=== PATIENT | male | born 1945 | race Two or more races ===

== ENCOUNTER 2018-10-22 16:40 | Inpatient (IN) | payer MEDICARE, OTHER ==
--- NOTE | 2018-10-22 17:29 | ED Physician Chart ---
ED Chief Complaint/HPI - Patient Information Date Seen:: 10/22/18 Time Seen:: 17:24 Chief Complaint:: localized weakness History of Present Illness:: this is a 72 yo male hypertensive,diabetic, smoker who sudden developed weakness of the right lower extremity. the patient denies chest pain and head pain. he denies having a stroke and a heart attack. Allergies:: Allergies Allergy/AdvReac Type Severity Reaction Status Date / Time No Known Allergies Allergy Verified 10/22/18 17:02 Vitals:: Vital Signs - 8 hr 10/22/18 16:58 Temp 97.3 F HR 71 RR 16 BP 182/88 O2 Sat % 100 Historian:: Patient Review:: Nurse's Note Reviewed ED Review of Systems - Review of Systems General/Constitutional: No fever, No chills, No weight loss, Weakness (right lower extremity weakness), No diaphoresis, No edema, No loss of appetite Skin: No skin lesions, No rash, No bruising Head: No headache, No light-headedness Eyes: No loss of vision, No pain, No diplopia ENT: No earache, No nasal drainage, No sore throat, No tinnitus Neck: No neck pain, No swelling, No thyromegaly, No stiffness, No mass noted Cardio Vascular: No chest pain, No palpitations, No PND, No orthopnea, No edema Pulmonary: No SOB, No cough, No sputum, No wheezing GI: No nausea, No vomiting, No diarrhea, No pain, No melena, No hematochezia, No constipation, No hematemesis G/U: No dysuria, No frequency, No hematuria Musculoskeletal: No bone or joint pain, No back pain, No muscle pain Endocrine: No polyuria, No polydipsia Psychiatric: No prior psych history, No depression, No anxiety, No suicidal ideation Hematopoietic: No bruising, No lymphadenopathy Allergic/Immuno: No urticaria, No angioedema Neurological: No syncope, No focal symptoms, No weakness, No paresthesia, No headache, No seizure, No dizziness, No confusion, No vertigo ED Past Medical History - Past Medical History Obtainable: Yes Past Medical History: HTN, DM Family History: None Social History: Smoker, Alcohol, No Drug Use, Surgical History: None Psychiatricy History: None Medication: Reviewed Family Medical History - Family Member Mother History Unknown: Yes ED Physical Exam - Physical Examination General/Constitutional: Awake, Well-developed, well-nourished, Alert, No distress, GCS 15, Non-toxic appearing, Ambulatory Head: Atraumatic Eyes: Lids, conjuctiva normal, PERRL, EOMI Skin: Nl inspection, No rash, No skin lesions, No ecchymosis, Well hydrated, No lymphadenopathy ENMT: External ears, nose nl, Nasal exam nl, Lips, teeth, gums nl Neck: Nontender, Full ROM w/o pain, No JVD, No nuchal rigidity, No bruit, No mass, No stridor Respiratory: Nl effort/Exclusion, Clear to Auscultation, No Wheeze/Rhonchi/ Rales (right sided chest congestion with ronchi heard) Other Respiratory comments:: respiratory rate 30 to 40 Cardio Vascular: RRR, No murmur, gallop, rubs, NL S1 S2 (irregular irregular ) Other Cardio Vascular comments:: rapid rate in atrial fib bilateral distal pulses are absent bilateral femoral pulses decreased GI: No tenderness/rebounding/guarding, No organomegaly, No hernia, Normal BS's, Nondistended, No mass/bruits, No McBurney tenderness : No CVA tenderness Extremities: No tenderness or effusion, Full ROM, normal strength in all extremities (right lower extremity weakness), No edema, Normal digits & nails ( left 5th toe is missing and left index finger distal amputation) Neuro/Psych: Alert/oriented, DTR's symmetric, Normal sensory exam, Normal motor strength, Judgement/insight normal, Mood normal, Normal gait (patient cannot walk because there is pain and numbness.), No focal deficits Misc: Normal back (painful on range of motion), No paraspinal tenderness ED Labs/Radiology/EKG Results - Lab Results Results: Abnormal Lab Results 10/22/18 10/22/18 10/22/18 17:30 17:30 17:30 WBC 7.9 RBC 4.57 Hgb 15.2 Hct 44.5 MCV 97.3 MCH 33.2 H MCHC Differential 34.1 RDW 12.9 Plt Count 243 MPV 7.5 Neutrophils % 60.0 Lymphocytes % 32.1 Monocytes % 6.0 Eosinophils % 1.2 Basophils % 0.7 PT 11.0 INR 1.06 PTT (Actin FS) 24.3 L Sodium 135 L Potassium 4.1 Chloride 96 L Carbon Dioxide 17.8 L Anion Gap 25.3 H BUN 22 Creatinine 1.1 Est GFR ( Amer) > 60.0 Est GFR (Non-Af Amer) > 60.0 BUN/Creatinine Ratio 20.0 Glucose 319 H Calcium 9.7 Total Bilirubin 0.6 AST 24 ALT 30 Alkaline Phosphatase 87 Ammonia Troponin I Total Protein 7.9 Albumin 4.2 Globulin 3.7 Albumin/Globulin Ratio 1.1 TSH 10/22/18 10/22/18 10/22/18 17:30 17:30 17:30 WBC RBC Hgb Hct MCV MCH MCHC Differential RDW Plt Count MPV Neutrophils % Lymphocytes % Monocytes % Eosinophils % Basophils % PT INR PTT (Actin FS) Sodium Potassium Chloride Carbon Dioxide Anion Gap BUN Creatinine Est GFR ( Amer) Est GFR (Non-Af Amer) BUN/Creatinine Ratio Glucose Calcium Total Bilirubin AST ALT Alkaline Phosphatase Ammonia 50 Troponin I 0.03 Total Protein Albumin Globulin Albumin/Globulin Ratio TSH 1.40 - Radiology Results Results: chest x-ray = bilateral fibrotic disease with some edema - EKG Interpretations EKG Time:: 17:02 Rate & Rhythm: rate = 91, atrial fib Dexter: right axis ED Assessment - Assessment General Assessment: critically ill with severe copd and hypoxemia severe occlusive disease of the lower extremities atrial fib with rapid ventricular response. chf, Critical Care Time: 72 minutes Excludes all billable procedures: Yes This condition life threatening/high prob of deterioration: Yes ED Septic Shock - . Is Septic Shock (SBP<90, OR Lactate>4 mmol\L) present?: No - <6hrs of presentation: Vital Signs: Vital Signs - 8 hr 10/22/18 16:58 Temp 97.3 F HR 71 RR 16 BP 182/88 O2 Sat % 100 ED Reassessment (Disposition) - Reassessment Reassessment Condition:: Improved - Diagnosis Diagnosis:: respiratory failure bilateral lower extremity occlusive disease atrial fib with rapid ventricular response diabetes mellitus - Aftercare/Follow up Instructions Notes:: critical care for 72 minutes - Patient Disposition Discharge/Transfer:: Acute Care w/in this hosp Admitted to:: Telemetry Admitting Medical Physician:: Mikel Saini Condition at Disposition:: Critical, Improved
[2018-10-22 17:45] LABS: % BASOPHILS 0.7 % (0.0-2.0); % EOSINOPHILS 1.2 % (0.0-5.0); % LYMPHOCYTES 32.1 % (20.0-50.0); BASOPHILE ABSOLUTE 0.1 Th/cumm (0-0.2); EOSINOPHILE ABSOLUTE 0.1 Th/cmm (0.1-0.4); HEMATOCRIT 44.5 % (41.0-60); HEMOGLOBIN 15.2 gm/dL (12-16); LYMPHOCYTE ABSOLUTE 2.5 Th/cmm (1.5-3.0); MEAN CELL VOLUME 97.3 fl (80-99); MEAN CORPUSCULAR HEMOGLOBIN 33.2 pg (27.0-31.0); MEAN CORPUSCULAR HGB CONC 34.1 pg (28.0-36.0); MONOCYTE ABSOLUTE 0.5 Th/cmm (0.3-1.0); NEUTROPHILE ABSOLUTE 4.7 Th/cmm (1.8-8.0); PLATELET COUNT 243 Th/cmm (150-400); RED BLOOD COUNT 4.57 Mil/cmm (3.80-5.80); RED CELL DISTRIBUTION WIDTH 12.9 % (11.5-20.0); WHITE BLOOD COUNT 7.9 Th/cmm (4.8-10.8)
[2018-10-22 18:35] LABS: INR 1.06 (0.5-1.4)
[2018-10-22] MEDS ORDERED: Sodium Chloride 0.45% 500 ML IV ONE (18:37)
[2018-10-22 18:50] LABS: ALB/GLOB RATIO 1.1 (1.0-1.8); ALBUMIN 4.2 gm/dL (4.2-5.5); ALKALINE PHOSPHATASE 87 U/L (34-104); ANION GAP 25.3 (7.0-16.0); BILIRUBIN,TOTAL 0.6 mg/dL (0.3-1.0); BUN - UREA NITROGEN 22 mg/dL (7-25); CALCIUM SERUM 9.7 mg/dL (8.6-10.3); CARBON DIOXIDE 17.8 mEq/L (21.0-31.0); CHLORIDE 96 mEq/L (98-107); CREATININE - SERUM 1.1 mg/dL (0.7-1.3); GFR AFRICAN-AMERICAN > 60.0 ml/min (>90); GFR NON AFRICAN-AMERICAN > 60.0 ml/min; GLUCOSE 319 mg/dL (70-105); POTASSIUM SERUM 4.1 mEq/L (3.5-5.1); SGOT 24 U/L (13-39); SGPT/ALT 30 U/L (7-52); SODIUM SERUM 135 mEq/L (136-145); TOTAL PROTEIN,SERUM 7.9 gm/dL (6.0-8.3)
[2018-10-22] MEDS ORDERED: Diltiazem 5 mg/mL 5mL Vial IVP STA ×2 (19:01→19:27)
[2018-10-22] MEDS ORDERED: IOHEXOL 300mgI/mL 100 ML VIAL ONE (19:02)
[2018-10-22] MEDS ORDERED: Diltiazem 5 mg/mL 5mL Vial IVP ONE ×2 (19:04→19:06)
[2018-10-22] MEDS ORDERED: Albuterol/Ipratropium Neb 3 ML AERS HHN ONE (19:26)
[2018-10-22] MEDS ORDERED: Diltiazem 5 mg/mL 25mL Vial IV ONE (19:58)
[2018-10-22] MEDS ORDERED: Dextrose 50% 50 mL Abboject IVP PRN (21:14)
[2018-10-22] MEDS ORDERED: GLUCAGON HCl 1 MG KIT IM PRN (21:14)
[2018-10-22 21:25] LABS: PaCO2 25.9 mmHg (35.0-45.0); PaO2 73.7 mmHg (80.0-100.0); pH 7.296 (7.35-7.45)
[2018-10-22] MEDS: Levofloxacin 500mg/100mL 500 MG/100 ML BAG IV SCH (23:00)
[2018-10-23] MEDS ORDERED: Sodium Chloride 0.45% 1,000 ML IV SCH (00:15)
[2018-10-23] MEDS: INSULIN LISPRO SLIDING SCALE 100 UNITS/ML UNIT SUBQ SCH ×5 (00:25→23:28)
[2018-10-23] MEDS: methylPREDNISolone SS 40 mg Vial IVP SCH ×4 (03:03→21:27)
[2018-10-23 05:48] VITALS: BP 117/75
[2018-10-23 05:55] LABS: % BASOPHILS 0.2 % (0.0-2.0); % EOSINOPHILS 0.4 % (0.0-5.0); % LYMPHOCYTES 12.6 % (20.0-50.0); % MONOCYTES 4.3 % (2.0-10.0); % NEUTROPHILS 82.5 % (40.0-80.0); HEMATOCRIT 43.2 % (41.0-60); HEMOGLOBIN 14.5 gm/dL (12-16); MEAN CELL VOLUME 97.5 fl (80-99); MEAN CORPUSCULAR HEMOGLOBIN 32.7 pg (27.0-31.0); MEAN CORPUSCULAR HGB CONC 33.5 pg (28.0-36.0); MONOCYTE ABSOLUTE 0.3 Th/cmm (0.3-1.0); NEUTROPHILE ABSOLUTE 6.8 Th/cmm (1.8-8.0); PLATELET COUNT 210 Th/cmm (150-400); RED BLOOD COUNT 4.43 Mil/cmm (3.80-5.80); RED CELL DISTRIBUTION WIDTH 12.9 % (11.5-20.0); WHITE BLOOD COUNT 8.1 Th/cmm (4.8-10.8)
[2018-10-23 06:19] LABS: ALB/GLOB RATIO 1.1 (1.0-1.8); ALKALINE PHOSPHATASE 85 U/L (34-104); ANION GAP 19.3 (7.0-16.0); BILIRUBIN,TOTAL 0.5 mg/dL (0.3-1.0); BUN - UREA NITROGEN 27 mg/dL (7-25); CALCIUM SERUM 9.4 mg/dL (8.6-10.3); CARBON DIOXIDE 17.4 mEq/L (21.0-31.0); CHLORIDE 96 mEq/L (98-107); CHOLESTEROL 127 mg/dL (<200); CREATININE - SERUM 0.9 mg/dL (0.7-1.3); GFR AFRICAN-AMERICAN > 60.0 ml/min (>90); GFR NON AFRICAN-AMERICAN > 60.0 ml/min; GLUCOSE 286 mg/dL (70-105); HDL -HIGH DENSITY LIPOPROTEIN 31 mg/dL (23-92); POTASSIUM SERUM 4.7 mEq/L (3.5-5.1); SGOT 48 U/L (13-39); SGPT/ALT 32 U/L (7-52); SODIUM SERUM 128 mEq/L (136-145); TOTAL PROTEIN,SERUM 7.5 gm/dL (6.0-8.3); TRIGLYCERIDES 107 mg/dL (<150)
[2018-10-23 08:07] LABS: A1C 7.2 % (4.8-5.6)
[2018-10-23] MEDS: Sodium Chloride 0.9% 1,000 ML IV SCH ×2 (09:07→18:20)
--- NOTE | 2018-10-23 09:45 | Diagnostic Imaging Report ---
Bilateral lower extremity DVT study HISTORY: Leg pain COMPARISON: None Technique: Longitudinal and transverse sonographic images of the bilateral lower extremity veins were obtained with doppler analysis. FINDINGS: Exam is limited due to body habitus. There is normal compressibility, augmentation and phasicity of the bilateral common femoral, superficial femoral, and popliteal veins. The bilateral posterior tibial veins were not able to be visualized due to body habitus. IMPRESSION: Limited exam due to body habitus. The bilateral posterior tibial veins are not able to be visualized due to body habitus. Otherwise no evidence of DVT within the bilateral lower extremity venous system.
--- NOTE | 2018-10-23 09:50 | Diagnostic Imaging Report ---
Head CT without intravenous contrast Indication: Weakness Comparison: None Technique: Axial images were obtained from the vertex to the skull base without IV contrast. Coronal reconstructions were made. Total DLP: 619, CTDI 34 FINDINGS: Images of the brain obtained without contrast demonstrate evidence of previous right temporal and occipital infarct with associated encephalomalacia. Atrophy is noted. There is no evidence of acute hemorrhage. The ventricles and basal cisterns are patent. No mass effect or midline shift. No evidence of a skull fracture or focal soft tissue swelling. There is diffuse atherosclerosis. Postsurgical changes of the right maxillary sinus is noted with air-fluid level also noted. Previous nasal fractures are seen age-indeterminate. IMPRESSION: No evidence of an acute intracranial hemorrhage. 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 Age-indeterminate, probably chronic nasal fractures. Please correlate clinically. Atrophy. Right maxillary sinusitis with air-fluid level. There is evidence of previous surgery in this region. Please correlate clinically. Diffuse atherosclerosis.
--- NOTE | 2018-10-23 09:53 | Diagnostic Imaging Report ---
CHEST X-RAY: AP view INDICATION: Weakness COMPARISON: None FINDINGS: There is diffuse increased increased lung markings. No focal consolidation or effusions. Heart size is normal. Atherosclerosis is noted. Old sixth through eighth left rib fractures are noted. No evidence of pneumothorax. IMPRESSION: Marked increased interstitial lung markings which represent chronic lung changes. A marginal degree of congestion is less likely cannot be completely excluded. Please correlate clinically. No focal consolidation identified Atherosclerotic vascular disease.
--- NOTE | 2018-10-23 09:55 | Diagnostic Imaging Report ---
Ultrasound abdomen HISTORY: Abdominal pain COMPARISON: None Technique: Sonography of the abdomen was performed in multiple planes. FINDINGS: Exam is severely limited due to body habitus and bowel gas. There is poor visualization of the liver limiting assessment for focal lesions. The liver measures 15 cm. Assessment of the gallbladder was limited. No gross gallstones identified. The common bile duct and pancreas are not visualized due to bowel gas. Limited assessment of the kidneys demonstrates no hydronephrosis. The spleen measures 10.6 cm. IMPRESSION: Markedly limited exam due to bowel gas and body habitus. No evidence of hydronephrosis.
--- NOTE | 2018-10-23 09:56 | Diagnostic Imaging Report ---
Right lower extremity arterial Doppler study HISTORY: Pain COMPARISON: None Technique: Longitudinal and transverse sonographic images of the right lower extremity arteries were obtained with doppler analysis. FINDINGS: There is severe atherosclerotic vascular disease without significant flow identified. ABIs are not able to be obtained due to pain. IMPRESSION: Severe right lower extending atherosclerotic vascular disease limiting assessment for significant flow. Please correlate clinically. CT or conventional angiography may be obtained for further assessment.
--- NOTE | 2018-10-23 10:20 | Diagnostic Imaging Report ---
CT lumbar spine without IV contrast HISTORY: Trauma COMPARISON: None Technique: Axial images were obtained from the lower thoracic spine to the upper sacrum without IV contrast. Reconstructions were made. total DLP: 1200, CTDI 39 Findings: Images of the lumbar spine obtained without contrast demonstrate possible previous left L1 transverse process fracture which may be chronic. Otherwise no evidence of acute fracture or subluxation. Advanced degenerative changes are seen including diffuse facet hypertrophic changes. Multilevel large marginal osteophytic spurs are noted primarily anteriorly and laterally. Osteopenia is seen with appears to be residual trabecular bone within the vertebral bodies most apparent at L1. There is diffuse atherosclerotic vascular disease. Severe chronic changes of the lung bases noted. IMPRESSION: Possible previous nondisplaced left L1 transverse process fracture which may be chronic. Please correlate clinically. Advanced degenerative changes Osteopenia Diffuse atherosclerotic vascular disease Severe increased interstitial lung markings are noted probably due to chronic changes.
[2018-10-23] MEDS ORDERED: Heparin Sod 5,000Units/ML 5,000 UNITS/ML VIAL SUBQ ONE (14:00)
[2018-10-23] MEDS ORDERED: Heparin 25,000 Units In D5W 25,000 UNITS/250 ML BAG IV SCH (15:00)
[2018-10-23] MEDS: Heparin 25,000 Units In D5W 25,000 UNITS/250 ML BAG IV PRN (15:28)
--- NOTE | 2018-10-23 15:40 | History and Physical ---
History of Present Illness - HPI Chief Complaint: Lower extremity weakness HPI: 72M was walking when he developed sudden lower extremity weakness, more on RLE. Hx HTN, DM, smoker. Vital Signs: Last Vital Signs Temp 97.6 F 10/23/18 12:00 Pulse 93 10/23/18 13:00 Resp 20 10/23/18 13:58 BP 134/90 10/23/18 13:00 Pulse Ox 96 10/23/18 13:00 Past Medical History Cardiovascular: Report: HTN Pulmonary: Report: Other (smoker) GI: Report: No Pertinent Hx Psych: Report: No Pertinent Hx Musculoskeletal: Report: No Pertinent Hx Endocrine: Report: Diabetes - Past Surgical History Past Surgical History: Other (L middle toe amputation) Family Medical History - Family Member Mother History Unknown: Yes Social History Smoke: # pack years (Active smoker) Alcohol: Occassional (Beer), Other Drugs: None Lives: Other - Medications Home Medications: Home Medication Medication Instructions Recorded Type Benazepril [Lotensin] 20 mg PO DAILY 10/22/18 History Metformin HCl 500 mg PO BID 10/22/18 History - Allergies Allergies/Adverse Reactions: Allergies Allergy/AdvReac Type Severity Reaction Status Date / Time No Known Allergies Allergy Verified 10/22/18 17:02 Review of Systems - Review of Systems Constitutional: Report: Weakness Eyes: Report: No Significant Respiratory: Report: No Significant Cardiovascular: Report: No Significant Neurological: Report: No Significant Physical Exam - Physical Exam HEENT: Report: Ears Nose Throat within normal limits Neck: Report: Within normal limits Cardiovascular Systems: Report: no murmurs noted, Irregular rhythm was noted Respiratory: Report: Clear to Auscultation of lung bautista Abdomen: Report: Non-tender to palpation Extremities: Report: Other (L middle toe amputated) Neuro/Psych: Report: Mood affect is within normal limits, A+Ox3 - Lab Results All Lab Results last 24 hours: Laboratory Results - last 24 hr 10/22/18 10/22/18 10/22/18 17:30 17:30 17:30 WBC 7.9 RBC 4.57 Hgb 15.2 Hct 44.5 MCV 97.3 MCH 33.2 H MCHC Differential 34.1 RDW 12.9 Plt Count 243 MPV 7.5 Neutrophils % 60.0 Lymphocytes % 32.1 Monocytes % 6.0 Eosinophils % 1.2 Basophils % 0.7 PT 11.0 INR 1.06 PTT (Actin FS) 24.3 L Specimen Source Sample Site pH pCO2 pO2 HCO3 Base Excess O2 Saturation Lenin Test Vent Rate Inspired O2 Tidal Volume PEEP Pressure (ins/psv/peep) Critical Value Sodium 135 L Potassium 4.1 Chloride 96 L Carbon Dioxide 17.8 L Anion Gap 25.3 H BUN 22 Creatinine 1.1 Est GFR ( Amer) > 60.0 Est GFR (Non-Af Amer) > 60.0 BUN/Creatinine Ratio 20.0 Glucose 319 H POC Glucose Calcium 9.7 Total Bilirubin 0.6 AST 24 ALT 30 Alkaline Phosphatase 87 Ammonia Troponin I Total Protein 7.9 Albumin 4.2 Globulin 3.7 Albumin/Globulin Ratio 1.1 Triglycerides Cholesterol LDL Cholesterol Direct HDL Cholesterol TSH 10/22/18 10/22/18 10/22/18 17:30 17:30 17:30 WBC RBC Hgb Hct MCV MCH MCHC Differential RDW Plt Count MPV Neutrophils % Lymphocytes % Monocytes % Eosinophils % Basophils % PT INR PTT (Actin FS) Specimen Source Sample Site pH pCO2 pO2 HCO3 Base Excess O2 Saturation Lenin Test Vent Rate Inspired O2 Tidal Volume PEEP Pressure (ins/psv/peep) Critical Value Sodium Potassium Chloride Carbon Dioxide Anion Gap BUN Creatinine Est GFR ( Amer) Est GFR (Non-Af Amer) BUN/Creatinine Ratio Glucose POC Glucose Calcium Total Bilirubin AST ALT Alkaline Phosphatase Ammonia 50 Troponin I 0.03 Total Protein Albumin Globulin Albumin/Globulin Ratio Triglycerides Cholesterol LDL Cholesterol Direct HDL Cholesterol TSH 1.40 10/22/18 10/23/18 10/23/18 19:09 00:25 03:00 WBC RBC Hgb Hct MCV MCH MCHC Differential RDW Plt Count MPV Neutrophils % Lymphocytes % Monocytes % Eosinophils % Basophils % PT INR PTT (Actin FS) Specimen Source Arterial Sample Site Left Radial pH 7.296 L pCO2 25.9 L pO2 73.7 L HCO3 12.3 L Base Excess -12.2 L O2 Saturation 94.0 Lenin Test Positive Vent Rate NA Inspired O2 100 Tidal Volume NA PEEP NA Pressure (ins/psv/peep) NA Critical Value LQ Sodium Potassium Chloride Carbon Dioxide Anion Gap BUN Creatinine Est GFR ( Amer) Est GFR (Non-Af Amer) BUN/Creatinine Ratio Glucose POC Glucose 458 H* 315 H Calcium Total Bilirubin AST ALT Alkaline Phosphatase Ammonia Troponin I Total Protein Albumin Globulin Albumin/Globulin Ratio Triglycerides Cholesterol LDL Cholesterol Direct HDL Cholesterol TSH 06/09/19 06/09/19 06/09/19 04:45 05:00 05:00 WBC RBC Hgb Hct MCV MCH MCHC Differential RDW Plt Count MPV Neutrophils % Lymphocytes % Monocytes % Eosinophils % Basophils % PT INR PTT (Actin FS) Specimen Source Sample Site pH pCO2 pO2 HCO3 Base Excess O2 Saturation Lenin Test Vent Rate Inspired O2 Tidal Volume PEEP Pressure (ins/psv/peep) Critical Value Sodium 128 L Potassium 4.7 Chloride 96 L Carbon Dioxide 17.4 L Anion Gap 19.3 H BUN 27 H Creatinine 0.9 Est GFR ( Amer) > 60.0 Est GFR (Non-Af Amer) > 60.0 BUN/Creatinine Ratio 30.0 Glucose 286 H POC Glucose Calcium 9.4 Total Bilirubin 0.5 AST 48 H ALT 32 Alkaline Phosphatase 85 Ammonia Troponin I 3.06 H* D Total Protein 7.5 Albumin 4.0 L Globulin 3.5 Albumin/Globulin Ratio 1.1 Triglycerides 107 Cholesterol 127 LDL Cholesterol Direct 81 HDL Cholesterol 31 TSH 1.25 10/23/18 10/23/18 10/23/18 05:00 05:04 11:26 WBC 8.1 RBC 4.43 Hgb 14.5 Hct 43.2 MCV 97.5 MCH 32.7 H MCHC Differential 33.5 RDW 12.9 Plt Count 210 MPV 7.5 Neutrophils % 82.5 H Lymphocytes % 12.6 L Monocytes % 4.3 Eosinophils % 0.4 Basophils % 0.2 PT INR PTT (Actin FS) Specimen Source Sample Site pH pCO2 pO2 HCO3 Base Excess O2 Saturation Lenin Test Vent Rate Inspired O2 Tidal Volume PEEP Pressure (ins/psv/peep) Critical Value Sodium Potassium Chloride Carbon Dioxide Anion Gap BUN Creatinine Est GFR ( Amer) Est GFR (Non-Af Amer) BUN/Creatinine Ratio Glucose POC Glucose 281 H 246 H Calcium Total Bilirubin AST ALT Alkaline Phosphatase Ammonia Troponin I Total Protein Albumin Globulin Albumin/Globulin Ratio Triglycerides Cholesterol LDL Cholesterol Direct HDL Cholesterol TSH 10/23/18 10/23/18 14:02 14:22 WBC RBC Hgb Hct MCV MCH MCHC Differential RDW Plt Count MPV Neutrophils % Lymphocytes % Monocytes % Eosinophils % Basophils % PT INR PTT (Actin FS) 29.6 Specimen Source Sample Site pH pCO2 pO2 HCO3 Base Excess O2 Saturation Lenin Test Vent Rate Inspired O2 Tidal Volume PEEP Pressure (ins/psv/peep) Critical Value Sodium Potassium Chloride Carbon Dioxide Anion Gap BUN Creatinine Est GFR ( Amer) Est GFR (Non-Af Amer) BUN/Creatinine Ratio Glucose POC Glucose Calcium Total Bilirubin AST ALT Alkaline Phosphatase Ammonia Troponin I 2.84 H* Total Protein Albumin Globulin Albumin/Globulin Ratio Triglycerides Cholesterol LDL Cholesterol Direct HDL Cholesterol TSH - Assessment Assessment: LE weakness R>L HTN DM Afib Elevated Troponin Hyponatremia - Plan Plan: Continue to monitor labs Continue to monitor Vs Strict I/O F/U ECHO - being performed at bedside F/U Pulm and Cards recs F/U troponin Continue current treatments. Continue collaboration with consulting specialist, nursing team and interdisciplinary team. Fall Precaution.
[2018-10-23] MEDS: Albuterol/Ipratropium Neb 3 ML AERS HHN SCH (18:42)
--- NOTE | 2018-10-23 18:49 | Cardiology ---
10/23/2018 ECHOCARDIOGRAM REPORT. PATIENT OF: Dr. Saini. M-MODE ECHOCARDIOGRAM: Mitral valve, anterior leaflet of mitral valve shows decreased excursion, EF velocity. Posterior leaflet of the mitral valve shows decreased excursion. Left ventricular posterior wall shows increased thickness, decreased excursion. Interventricular septum shows increased thickness, decreased excursion, ejection fraction 43%. Left atrium normal. Aortic root shows normal dimension, normal excursion of aortic leaflets. CONCLUSION: Hypertrophy of the left ventricle, ejection fraction 43%. 2D ECHO: Long axis view shows enlarged left ventricular cavity with decreased ejection fraction, hypertrophy of the left ventricle. Left atrium normal. Aortic root shows normal dimension, normal excursion of aortic leaflets. Short axis view of mitral valve normal. Short axis view of aortic valve normal. Apical 4-chamber view shows enlarged left ventricular cavity with decreased ejection fraction. Left atrium enlarged. Right ventricular cavity, right atrium normal, no pericardial effusion. CONCLUSION: Cardiomyopathy, ejection fraction 43%, hypertrophy of the left ventricle. Doppler study shows moderate mitral regurgitation, moderate tricuspid regurgitation, right ventricular systolic pressure 65 mmHg with severe pulmonary hypertension. JOB# [id number]
[2018-10-23] MEDS: Levofloxacin 500mg/100mL 500 MG/100 ML BAG IV SCH (23:00)
[2018-10-24] MEDS: Albuterol/Ipratropium Neb 3 ML AERS HHN SCH ×4 (00:23→18:43)
--- NOTE | 2018-10-24 03:10 | Consultation ---
DATE OF CONSULTATION: 10/23/[address] Saini. HISTORY OF PRESENT ILLNESS: This is a 72-year-old male patient who was walking in the mal at which time he suddenly became weak and the legs could not hold him at this time, he collapsed, but did not have syncope, and the patient was brought to the Emergency Room. The patient is admitted. The patient has atrial fibrillation with poor pulses in both lower extremities and unable to move both the lower extremities. The patient had a CT scan of the back, which showed L1 fracture, probably old. CT scan of the brain shows old CVA in the right temporal occipital lobe. FAMILY HISTORY: Unremarkable. SOCIAL HISTORY: The patient is a smoker. ALLERGIES: None. PHYSICAL EXAMINATION: VITAL SIGNS: Blood pressure 120/80, pulse 90 irregular, and respirations 28. HEAD: Normocephalic. No lumps or bumps. EYES: Pupils equal, reactive to light. Fundi show AV nicking, sclerae white, conjunctivae pink. NECK: Carotid 2+. Normal upstroke. JVD flat. Thyroid not palpable. Lymph nodes not palpable. CHEST: Shows increased AP diameter. No kyphosis, scoliosis. LUNGS: Bilateral bronchovesicular breath sounds. HEART: PMI fifth intercostal space with lateral to midclavicular line. S1 irregular. S2, S3, S4. Systolic murmur, grade 2/6, lower left sternal border, radiating to left axilla. ABDOMEN: Soft. Liver, spleen not palpable. No organomegaly. Bowel sounds active. NEUROLOGIC: The patient is unable to move both lower extremities: The patient had echocardiogram which showed ejection fraction 43%, left ventricular hypertrophy with moderate mitral regurgitation, moderate tricuspid regurgitation, severe pulmonary hypertension with right ventricular systolic pressure 65 mmHg. DIAGNOSES: 1. Atrial fibrillation. 2. Hypertension. 3. Peripheral vascular disease of both lower extremities. 4. 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 5. Diabetes mellitus type 2. 6. Diabetic peripheral vascular disease. 7. Nicotine dependence. 8. Chronic obstructive pulmonary disease. 9. Hyponatremia. 10. Non-ST elevation myocardial infarction with elevated troponin level. 11. Cardiomyopathy. 12. Mild pulmonary hypertension. 13. Osteopenia. 14. L1 compression fracture. PLAN: The patient to continue present care with anticoagulation. The patient will be transferred to tertiary care for further evaluation, management for peripheral vascular disease and possible myocardial infarction. Patient's condition discussed with the family at length at the bedside. JOB# [id number]
[2018-10-24 03:12] LABS: HEMATOCRIT 39.8 % (41.0-60); HEMOGLOBIN 13.5 gm/dL (12-16); MEAN CELL VOLUME 97.7 fl (80-99); MEAN CORPUSCULAR HEMOGLOBIN 33.1 pg (27.0-31.0); MEAN CORPUSCULAR HGB CONC 33.9 pg (28.0-36.0); PLATELET COUNT 198 Th/cmm (150-400); RED BLOOD COUNT 4.07 Mil/cmm (3.80-5.80); RED CELL DISTRIBUTION WIDTH 13.1 % (11.5-20.0)
[2018-10-24 03:17] LABS: WHITE BLOOD COUNT 15.4 Th/cmm (4.8-10.8)
[2018-10-24 03:47] LABS: ALB/GLOB RATIO 1.3 (1.0-1.8); ALBUMIN 3.7 gm/dL (4.2-5.5); ALKALINE PHOSPHATASE 63 U/L (34-104); ANION GAP 22.6 (7.0-16.0); BILIRUBIN,TOTAL 0.5 mg/dL (0.3-1.0); BUN - UREA NITROGEN 38 mg/dL (7-25); CALCIUM SERUM 8.3 mg/dL (8.6-10.3); CARBON DIOXIDE 12.1 mEq/L (21.0-31.0); CHLORIDE 100 mEq/L (98-107); CREATININE - SERUM 1.1 mg/dL (0.7-1.3); GFR AFRICAN-AMERICAN > 60.0 ml/min (>90); GFR NON AFRICAN-AMERICAN > 60.0 ml/min; POTASSIUM SERUM 4.7 mEq/L (3.5-5.1); SGOT 292 U/L (13-39); SGPT/ALT 84 U/L (7-52); SODIUM SERUM 130 mEq/L (136-145); TOTAL PROTEIN,SERUM 6.6 gm/dL (6.0-8.3)
[2018-10-24 04:00] LABS: GLUCOSE 170 mg/dL (70-105)
[2018-10-24] MEDS: Sodium Chloride 0.9% 1,000 ML IV SCH ×2 (05:00→15:49)
[2018-10-24] MEDS: methylPREDNISolone SS 40 mg Vial IVP SCH ×3 (05:18→22:25)
[2018-10-24] MEDS: INSULIN LISPRO SLIDING SCALE 100 UNITS/ML UNIT SUBQ SCH ×3 (05:20→17:31)
[2018-10-24 06:49] LABS: BAND NEUTROPHILE 3 % (0-10); BASOPHIL 0 % (0-3); EOSINOPHIL 0 % (0-5); LYMPHOCYTE 7 % (20-50); MONOCYTE 6 % (2-10); NEUTROPHILS 84 % (40-80); PLATELET ESTIMATE ADEQUATE (NORMAL)
--- NOTE | 2018-10-24 12:25 | Consultation ---
DATE OF CONSULTATION: 10/23/2018 REFERRING PHYSICIAN: Dr. Saini. Thank you very much for this consultation. HISTORY OF PRESENT ILLNESS: This is a 72-year-old male, very pleasant, was doing okay, ____ started having some weakness lower extremity; he did not walk, presented with having some weakness in his lower extremities. It looks like arterial Doppler showed significant atherosclerosis, but limited information, according to the test. The patient was having some shortness of breath, but has improved, has history of smoking for 50 years. He says he just quit few days ago, has history of hypertension. REVIEW OF SYSTEMS: GENERAL: There is weakness of lower extremities. No fatigue. CARDIOVASCULAR: No chest pain or palpitations. RESPIRATORY: Minimal shortness of breath, resolved. GASTROINTESTINAL: No nausea or vomiting. PHYSICAL EXAMINATION: GENERAL: He is awake, alert, not in acute distress. VITAL SIGNS: Temperature 97.6, pulse 93, respiration is 19, blood pressure 134/90, saturation 96%. HEENT: Atraumatic, normocephalic. Pupils react to light and accommodation. Ears, nose, and throat normal. NECK: Supple. No JVD. CHEST: Good breath sounds bilaterally. Decreased in bases. HEART: Regular rate and rhythm. ABDOMEN: Soft. EXTREMITIES: There is a significant redness, mottling all the way up to the thigh area and bilateral extremities, in addition to coldness in both sides. DIAGNOSTIC DATA: Ultrasound as mentioned before. Chest x-ray, interstitial markings, possible chronic lung disease. LABORATORY DATA: WBC 8.1, hemoglobin 14.5, platelets 210. ABGs: pH 7.29, pCO2 of 25, pO2 of 73, bicarbonate 12. Sodium is 130, potassium 4.7, BUN is 27, creatinine 0.9, troponin is 3.06. IMPRESSION: Peripheral vascular disease with ischemia non-ST elevation myocardial infarction. There is underlying chronic obstructive pulmonary disease as well. PLAN: I discussed with Dr. Saini and nursing staff. The patient needs to be transferred to higher level of care to get CT angio and possible intervention needed. We will start the anticoagulation in the meantime, give the breathing treatment and Cardiology evaluation is pending, but to call for Dr. Keena Velasco . Decrease steroids. I will follow the patient with you. JOB# [id number] MAGALI
--- NOTE | 2018-10-24 13:24 | General Progress Note ---
Subjective - Review of Systems Service Date: 10/24/18 Subjective: Diabetic alert still unable to move both the lower extremities Objective - Results Result Diagrams: 10/24/18 03:00 10/24/18 03:00 Recent Labs: Laboratory Last Values WBC 15.4 Th/cmm (4.8-10.8) H D 10/24/18 03:00 RBC 4.07 Mil/cmm (3.80-5.80) 10/24/18 03:00 Hgb 13.5 gm/dL (12-16) 10/24/18 03:00 Hct 39.8 % (41.0-60) L 10/24/18 03:00 MCV 97.7 fl (80-99) 10/24/18 03:00 MCH 33.1 pg (27.0-31.0) H 10/24/18 03:00 MCHC Differential 33.9 pg (28.0-36.0) 10/24/18 03:00 RDW 13.1 % (11.5-20.0) 10/24/18 03:00 Plt Count 198 Th/cmm (150-400) 10/24/18 03:00 MPV 7.4 fl 10/24/18 03:00 Add Manual Diff YES 10/24/18 03:00 Neutrophils % 82.5 % (40.0-80.0) H 10/23/18 05:00 Band Neutrophils % 3 % (0-10) 10/24/18 03:00 Lymphocytes % 12.6 % (20.0-50.0) L 10/23/18 05:00 Monocytes % 4.3 % (2.0-10.0) 10/23/18 05:00 Eosinophils % 0.4 % (0.0-5.0) 10/23/18 05:00 Basophils % 0.2 % (0.0-2.0) 10/23/18 05:00 Neutrophils (Manual) 84 % (40-80) H 10/24/18 03:00 Lymphocytes 7 % (20-50) L 10/24/18 03:00 Monocytes 6 % (2-10) 10/24/18 03:00 Eosinophils 0 % (0-5) 10/24/18 03:00 Basophils 0 % (0-3) 10/24/18 03:00 Platelet Estimate ADEQUATE (NORMAL) 10/24/18 03:00 PT 11.0 SECONDS (9.5-11.5) 10/22/18 17:30 INR 1.06 (0.5-1.4) 10/22/18 17:30 PTT (Actin FS) 69.6 SECONDS (26.0-38.0) H 10/24/18 09:00 Specimen Source Arterial 10/22/18 19:09 Sample Site Left Radial 10/22/18 19:09 pH 7.296 (7.35-7.45) L 10/22/18 19:09 pCO2 25.9 mmHg (35.0-45.0) L 10/22/18 19:09 pO2 73.7 mmHg (80.0-100.0) L 10/22/18 19:09 HCO3 12.3 mEq/L (20.0-26.0) L 10/22/18 19:09 Base Excess -12.2 mEq/L (-3.0-3.0) L 10/22/18 19:09 O2 Saturation 94.0 % (92.0-100.0) 10/22/18 19:09 Lenin Test Positive 10/22/18 19:09 Vent Rate NA 10/22/18 19:09 Inspired O2 100 10/22/18 19:09 Tidal Volume NA 10/22/18 19:09 PEEP NA 10/22/18 19:09 Pressure (ins/psv/peep) NA 10/22/18 19:09 Critical Value LQ 10/22/18 19:09 Sodium 130 mEq/L (136-145) L 10/24/18 03:00 Potassium 4.7 mEq/L (3.5-5.1) 10/24/18 03:00 Chloride 100 mEq/L (98-107) 10/24/18 03:00 Carbon Dioxide 12.1 mEq/L (21.0-31.0) L 10/24/18 03:00 Anion Gap 22.6 (7.0-16.0) H 10/24/18 03:00 BUN 38 mg/dL (7-25) H 10/24/18 03:00 Creatinine 1.1 mg/dL (0.7-1.3) 10/24/18 03:00 Est GFR ( Amer) > 60.0 ml/min (>90) 10/24/18 03:00 Est GFR (Non-Af Amer) > 60.0 ml/min 10/24/18 03:00 BUN/Creatinine Ratio 34.5 10/24/18 03:00 Glucose 170 mg/dL (70-105) H D 10/24/18 03:00 POC Glucose 268 MG/DL (70 - 105) H 10/24/18 12:05 Calcium 8.3 mg/dL (8.6-10.3) L 10/24/18 03:00 Total Bilirubin 0.5 mg/dL (0.3-1.0) 10/24/18 03:00 AST 292 U/L (13-39) H 10/24/18 03:00 ALT 84 U/L (7-52) H 10/24/18 03:00 Alkaline Phosphatase 63 U/L (34-104) 10/24/18 03:00 Ammonia 50 umol/L (16-53) 10/22/18 17:30 Troponin I 2.14 ng/mL (0.01-0.05) H* D 10/24/18 03:00 Total Protein 6.6 gm/dL (6.0-8.3) 10/24/18 03:00 Albumin 3.7 gm/dL (4.2-5.5) L 10/24/18 03:00 Globulin 2.9 gm/dL 10/24/18 03:00 Albumin/Globulin Ratio 1.3 (1.0-1.8) 10/24/18 03:00 Triglycerides 107 mg/dL (<150) 10/23/18 04:45 Cholesterol 127 mg/dL (<200) 10/23/18 04:45 LDL Cholesterol Direct 81 mg/dL (75-193) 10/23/18 04:45 HDL Cholesterol 31 mg/dL (23-92) 10/23/18 04:45 TSH 1.25 uIU/ml (0.34-5.60) 10/23/18 05:00 - Physical Exam Vitals and I&O: Vital Signs Temp 98.5 F 10/24/18 08:00 Pulse 97 10/24/18 10:00 Resp 26 10/24/18 10:00 BP 124/60 10/24/18 10:00 Pulse Ox 99 10/24/18 10:00 Intake & Output 10/23/18 10/24/18 10/24/18 18:59 06:59 18:59 Intake Total 2818.110 4166 Output Total 475 600 Balance 1724.165 0679 Weight (lbs) 63.957 kg 63.758 kg Intake: Intake, IV Amount 344.628 3831 Levofloxacin 500mg/100mL 100 500 mg In 100 ml @ 100 mls/hr IV Q24HR [facility] Rx#: [id number] Sodium Chloride 0.9% 1, 932.279 6452 000 ml @ 100 mls/hr IV . Q10H [facility] Rx#:[id number] Oral 1050 1400 Output: Urine 475 600 Other: # Bowel Movements 0 1 Stool Characteristics Soft Brown Weight Source Bedscale Bedscale Active Medications: Current Medications Albuterol/Ipratropium (Duoneb Neb) 3 ml HHN Q6HRT [facility] Stop: 12/22/18 18:59 Last Admin: 10/24/18 07:10 Dose: 3 ml Benazepril HCl (Lotensin) 20 mg PO DAILY [facility] Stop: 12/23/18 08:59 Last Admin: 10/24/18 08:19 Dose: 20 mg Dextrose (D50w) 50 ml IVP PRN PRN PRN Reason: Blood Glucose less than 70 Stop: 12/21/18 21:13 Dextrose (Glutose 40%) 18.75 gm PO PRN PRN PRN Reason: Blood Glucose less than 70 Stop: 12/21/18 21:13 Glucagon (Glucagen) 1 mg IM PRN PRN PRN Reason: Blood Glucose less than 70 Stop: 12/21/18 21:13 Levofloxacin (Levaquin Pb) 500 mg in 100 mls @ 100 mls/hr IV Q24HR [facility] Stop: 12/21/18 22:59 Last Infusion: 10/24/18 00:00 Dose: Infused Sodium Chloride (Nacl 0.9%) 1,000 mls @ 100 mls/hr IV .Q10H [facility] Stop: 12/22/18 08:14 Last Admin: 10/24/18 05:00 Dose: 100 mls/hr Heparin Sodium/Dextrose (Heparin Drip) 25,000 units in 250 mls @ 8 mls/hr IV TITR PRN; Protocol PRN Reason: ANTICOAG Stop: 12/22/18 14:59 Last Admin: 10/23/18 15:28 Dose: 800 units/hr, 8 mls/hr Insulin Human Lispro (Humalog Insulin Sliding Scale) 0 units SUBQ Q6HR [facility]; Protocol Stop: 12/22/18 00:00 Last Admin: 10/24/18 05:20 Dose: 4 units Ketorolac Tromethamine (Toradol) 15 mg IVP Q6HR PRN PRN Reason: Pain (Mild) Stop: 12/22/18 12:17 Last Admin: 10/23/18 21:20 Dose: 15 mg Metformin HCl (Glucophage) 500 mg PO BID [facility] Stop: 12/22/18 08:59 Last Admin: 10/24/18 08:18 Dose: 500 mg Methylprednisolone Sodium Succinate (Solu-Medrol) 40 mg IVP Q8H [facility] Stop: 12/22/18 13:51 Last Admin: 10/24/18 05:18 Dose: 40 mg Miscellaneous (Heparin Drip Per Pharmacy) 1 ea MC PRN [facility]; Protocol Stop: 12/22/18 12:59 General: Alert, Oriented x3, No acute distress HEENT: Mucous membr. moist/pink Neck: Supple, JVD, +2 carotid pulse wo bruit (flat) Cardiovascular: Systolic murmurs, Other Lungs: Clear to auscultation, Normal air movement (atrial fibrillation), Other ( layer) Abdomen: Bowel sounds, Soft, Other (organomegaly) Extremities: Pulses (poor peripheral pulses) Assessment/Plan - Assessment Assessment: Atrial fibrillation Non-STEMI macular infarction Peripheral emboli Old mitral infarction Severe pulmonary hypertension Diabetes mellitus type 2 Diabetic peripheral vascular disease Hypertension COPD Nicotine dependence Cardiomyopathy is ischemic - Plan Plan: Continue heparin patient to be transferred to tertiary care
[2018-10-24] MEDS ORDERED: Sodium Bicarbonate 8.4% 50mEq PFS IVP ONE (16:42)
[2018-10-24 17:14] LABS: URINE SOURCE FOLEY PORT
[2018-10-24 17:23] LABS: URINE BILIRUBIN NEGATIVE (NEGATIVE); URINE BLOOD LARGE (NEGATIVE); URINE GLUCOSE (UA) 500 mg/dL (NEGATIVE); URINE KETONE NEGATIVE (NEGATIVE); URINE LEUKOCYTE ESTERASE NEGATIVE (NEGATIVE); URINE MICROSCOPIC INDICATED? YES; URINE NITRATE NEGATIVE (NEGATIVE); URINE PH 5.5 (4.6 - 8.0); URINE PROTEIN 100 mg/dL (NEGATIVE); URINE UROBILINOGEN 0.2 E.U./dL (0.2 - 1.0)
[2018-10-24] MEDS: Heparin 25,000 Units In D5W 25,000 UNITS/250 ML BAG IV PRN (17:30)
[2018-10-24 17:42] LABS: URINE CLARITY CLOUDY (CLEAR); URINE COLOR YELLOW
[2018-10-24 17:45] LABS: URINE BACTERIA MANY /hpf (NONE SEEN); URINE EPITHELIAL CELLS NONE SEEN /lpf (FEW)
--- NOTE | 2018-10-24 21:21 | Consultation ---
DATE OF CONSULTATION: LOCATION: [facility], room #7. ATTENDING PHYSICIAN: Dr. Bryant Velasco Thank you very much Dr. Bryant Velasco for allowing me to participate in the management of this patient of yours. IDENTIFICATION: Mr. Alexandre Zamora is a 72-year-old male patient. The patient is conscious, alert. The patient is accompanied by family members. History has been taken from the family members. HISTORY OF PRESENT ILLNESS: A 72-year-old male patient who is a known case of diabetes mellitus, hypertension, past history of smoking. The patient started noticing discoloration of the lower extremity, more so on the left side and started having pain and coldness. The patient was evaluated and was found to have severe ischemic changes of both lower extremities. The patient has been started on IV heparin. Meanwhile, the patient is found to have hyponatremia, acidosis and hence a renal consultation has been requested. According to family members, the patient is eating less lately. His main complaint is of pain on the lower extremities. No complaint of chest pain. No complaint of shortness of breathing. The patient does have palpitations. The patient denies any previous history of renal failure. The patient states that he is taking all his medications at home regularly. He was not aware of the circulation problem before. The patient also at the same time was found to have atrial fibrillation. The patient also had some pain on the lower back. CAT scan of the back was significant for a L1 fracture. 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 SOCIAL HISTORY: No history of alcoholism. The patient is a chronic smoker. No history of drug use. Not allergic to any medication. PHYSICAL EXAMINATION: GENERAL: A 72-year-old male patient, conscious, alert. VITAL SIGNS: Blood pressure 110/72, heart rate 92, irregular, respiration 18. HEAD: Normocephalic, atraumatic. EYES: Sclerae is nonicteric. Conjunctivae are pink. Pupils reactive. EAR, NOSE, THROAT: No bleeding or discharge. NECK: Jugular venous pressure normal. No carotid bruit or stiffness, no lymphadenopathy. No neck stiffness. HEART: Irregular. Cushing in the sixth intercostal space. LUNGS: Good air entry. No rales or rhonchi. ABDOMEN: Soft, not distended. Bowel sounds present. No organomegaly or bruit. EXTREMITIES: No edema of the legs. No calf tenderness. The patient does have dorsalis pedis diminished, and both the lower extremities are cold. SIGNIFICANT LABORATORY DATA: WBC 15.4, hemoglobin 13.5, platelets 194,000. Sodium 130, potassium 4.7, chloride 100, CO2 of 12.1, BUN 38, creatinine 1.1, BUN was 22 before. Blood sugar 170, AST and ALT elevated. Albumin 3.7. Urinalysis not available. ASSESSMENT: 1. Acute kidney injury. 2. Hyponatremia. 3. Acidosis. 4. Diabetes mellitus. 5. Peripheral vascular disease. 6. History of hypertension. 7. Chronic smoker. 8. Atrial fibrillation. PLAN: 1. I will obtain kidney ultrasound. 2. I will obtain urinalysis. 3. I will obtain T3, T4, TSH. 4. I will obtain phosphorus, magnesium, CMP in the morning. 5. Start the patient on NS IV hydration. 6. Start patient on sodium bicarbonate IV 1 ampule push followed by p.o. I will follow this patient with you. Case discussed with Dr. Bryant Velasco at length. JOB# [id number]
[2018-10-24] MEDS: Levofloxacin 500mg/100mL 500 MG/100 ML BAG IV SCH (22:27)
--- NOTE | 2018-10-25 00:04 | Consultation ---
DATE OF CONSULTATION: 10/24/2018 REQUESTING PHYSICIANS: Dr. Saini and Dr. Bryant Velasco. HISTORY OF PRESENT ILLNESS: This 72-year-old male is seen in the Intensive Care Unit through the courtesy of Dr. Saini and Dr. Bryant Velasco. According to the family, the patient was doing fine until the day of admission when he was walking in a shopping mall and he developed severe weakness in the legs and collapsed and was brought to the Emergency Room. He developed severe numbness in the lower extremities. They became cold and progressively developed a purplish discoloration extending all the way up to the inguinal areas in the hip. The patient was started on intravenous heparin. He is noted to be in atrial fibrillation. He is an active smoker, and at home, he has been on benazepril, Lotensyl and metformin. PAST MEDICAL HISTORY: Diabetes, hypertension, atrial fibrillation, peripheral vascular disease. PAST SURGICAL HISTORY: The patient has had some intervention in the left lower extremity and also has had amputation of the left fifth toe. PHYSICAL EXAMINATION: GENERAL: This is a 72-year-old male who is awake, but is lethargic. VITAL SIGNS: Blood pressure is 134/90. Heart rate, the patient has tachycardia with atrial fibrillation. He is afebrile. HEENT: Normocephalic and atraumatic. Pupils are equal and reactive to light and accommodation. Conjunctivae are pale. Sclerae are nonicteric. Ears, nose and throat: Unremarkable. NECK: Supple. No distended veins. No thyromegaly. CHEST: Symmetrical. LUNGS: Clear. CARDIOVASCULAR: Heart sounds are regular and normal. ABDOMEN: Soft, nondistended, nontender. No organomegaly, no palpable mass. Bowel sounds are normal. EXTREMITIES: The patient has pulseless lower extremities, and there is purplish splotchy discoloration on lower extremities extending to the hips. Pedal pulses and popliteal pulses and even femoral pulses are not palpable. IMPRESSION: Acute thromboembolism of the distal aorta, most likely saddle embolus and/or bilateral femoral thromboembolism with acute ischemia of lower extremities, atrial fibrillation, diabetes. PLAN AND RECOMMENDATIONS: I would recommend to continue intravenous heparin. The patient should be transferred to a higher level of care. I am told that the transfer to [facility] is already in the works. I am also recommending to explore the possibility of transferring to [facility]. I have scheduled him for surgery as soon as he gets transferred. Then, we will arrange for bilateral femoral thromboembolectomy. I am also requesting a CT angiogram of abdominal aorta and bilateral lower extremities, if possible and if it can be done in a timely manner. Otherwise, it can be done in the destination hospital, either [facility] or at whatever hospital he gets to be transferred to. Thank you Dr. Saini and Dr. Bryant Velasco for allowing me to see this patient. I have discussed this with the patient's family, and as mentioned before, I am willing to take care of his vascular problem if he gets transferred to [facility]. JOB# [id number]
[2018-10-25] MEDS: INSULIN LISPRO SLIDING SCALE 100 UNITS/ML UNIT SUBQ SCH (00:42)
[2018-10-25] MEDS: Albuterol/Ipratropium Neb 3 ML AERS HHN SCH (01:44)
--- NOTE | 2018-10-25 02:03 | Consultation ---
DATE OF CONSULTATION: 10/24/2018 INFECTIOUS DISEASE CONSULTATION REFERRING PHYSICIAN: Dr. Saini. REASON FOR CONSULTATION: Leukocytosis. HISTORY OF PRESENT ILLNESS: The patient is a 72-year-old male with a past medical history of hypertension, peripheral vascular disease, left middle toe amputation in the past, diabetes mellitus type 2, nicotine dependence, COPD, hyponatremia, cardiomyopathy, mild pulmonary hypertension, osteopenia, L1 compression fracture, atrial fibrillation, admitted on 10/23/2018 for sudden weakness of his both legs. He is only able to walk on a regular basis. While walking in the mall, he felt weakness in the legs and collapsed. He cannot walk on his feet. He developed some numbness. So, he was presented to the ER for further evaluation and management. On initial evaluation, the patient's temperature was 97.3 degrees Fahrenheit and WBC count 7900. Today, the patient's WBC count went up to 15,000. ID consult was called for further antibiotic management. Meanwhile arterial study of lower extremity suggested severe right lower extremity atherosclerotic vascular disease limiting assessment for the significant flow. The patient required higher level of care and insurance company was informed. Awaiting for transfer to the [facility]. Meanwhile antibiotic eugene, the patient is receiving Levaquin. PAST MEDICAL HISTORY: Includes hypertension, diabetes mellitus type 2, nicotine dependence, active smoking. ALLERGIES: NKDA. MEDICATIONS: As per medication reconciliation sheet. Antibiotic eugene, the patient is receiving Levaquin. SOCIAL HISTORY: The patient lives with the family, has been an active smoker. No alcohol, no drug use. The patient is . REVIEW OF SYSTEMS: GENERAL: The patient has no fever, no chills. HEENT: No diplopia, no photophobia, no sore throat. RESPIRATORY: No cough, no shortness of breath. CARDIOVASCULAR: No chest pain, no palpitation. GASTROINTESTINAL: No nausea, no vomiting, no diarrhea, no constipation. GENITOURINARY: No dysuria. NEUROLOGIC: No headache, no dizziness. The patient has numbness of both lower extremities, worse on the right side. The patient has weakness of both lower extremities, worse on the right side. SKIN: Some cyanotic bilateral heels. PHYSICAL EXAMINATION: VITAL SIGNS: Current vital signs shows temperature is 98.5 degrees Fahrenheit, pulse 105, respiration 18, blood pressure is 124/60, oxygen saturation 99%. GENERAL: The patient is comfortable, lying in the bed, not in acute distress. HENT: Head is normocephalic, atraumatic. Oral cavity moist, pink tongue. EYES: No pallor, no icterus. Pupils PERRLA, EOMI. NECK: Supple, no JVD, no bruit. Trachea in midline. CHEST: Bilateral vesicular sounds. No crackles or wheezing. HEART: S1, S2 within normal limits. Regular rhythm. No murmur, no gallop. ABDOMEN: Soft, nontender, nondistended. Bowel sounds present. EXTREMITIES: The patient has cyanotic heels and very cold and clammy lower extremity. NEUROLOGIC: Unable to move his both lower extremities. SKIN: No ulcers. LABORATORY DATA: Current lab shows WBC count is 15,400, hemoglobin 13.5, hematocrit 39.48, platelets are 198,000, and neutrophil is 84%. Sodium is 130, potassium 4.7, chloride 100, bicarbonate is 12.1, BUN is 38, creatinine 1.1 and glucose is 170. Troponin 2.14. CT of the head suggested no evidence of acute intracranial hemorrhage, previous right temporal occipital lobe infarct with encephalomalacia, age-indeterminate, probably chronic nasal fractures, atrophy. Chest x-ray shows marked interstitial marking, which represent chronic lung disease, marginal degree of congestion is less likely, cannot completely excluded. No focal consolidation. CT of lumbar spine shows possible previous nondisplaced left L1 transverse fracture, which may be chronic osteopenia, diffuse atherosclerotic vascular disease, severe increased interstitial lung markings, chronic right lower extremity Doppler ultrasound suggested severe right lower extremity atherosclerotic vascular disease limiting assessment for significant flow. CT of conventional angiography may be obtained for further evaluation. Lower extremity ultrasound limited exam, bilateral posterior tibial veins. No evidence of DVT within the bilateral lower extremity. Ultrasound of the abdomen, marked limited exam due to bowel gas and body habitus. No evidence of hydronephrosis. IMPRESSION: 1. Leukocytosis, most likely due to steroid. 2. Bilateral lower extremity, most likely secondary to peripheral arterial disease. 3. Hypertension. 4. Diabetes mellitus type 2. 5. History of nicotine dependence. 6. Interstitial lung disease versus chronic obstructive pulmonary disease. 7. Non-ST elevation myocardial infarction. 8. Cardiomyopathy. 9. Mild pulmonary hypertension. 10. Osteopenia. 11. L1 compression fracture. 12. Metabolic acidosis with a bicarbonate 12. PLAN AND RECOMMENDATIONS: Continue Levaquin. Antibiotic has lesser role to play. As for Vascular Surgery consultation with Dr. Emerson and for Renal consultation with Dr. Mohan Marmolejo for metabolic acidosis. We are waiting for transfer to higher level of care as per insurance. Discussed with the family. Discussed with RN. Thank you, Dr. Saini for involving me in taking care of this patient. This note is also for covering Dr. Saini. JOB# [id number] [facility]
[2018-10-25] MEDS: Sodium Chloride 0.9% 1,000 ML IV SCH (02:21)
--- NOTE | 2018-10-25 20:28 | Progress Notes ---
DATE: 10/24/2018 PULMONARY PROGRESS NOTE SUBJECTIVE: The patient appears to be doing okay. No distress, no shortness of breath. PHYSICAL EXAMINATION: VITAL SIGNS: Temperature 99.2, pulse ____, respiration is 20, blood pressure 124/64, saturation 98%. CHEST: Good breath sounds. No wheeze or crackles. HEART: Regular rate and rhythm. EXTREMITIES: Bit more warmer, still cool and less mottled. LABORATORY DATA: WBC 15.4, hemoglobin is 13.5. Sodium 130, potassium 4.7, BUN is 30, creatinine 1.1. IMPRESSION: 1. Chronic obstructive pulmonary disease. 2. Peripheral vascular disease. 3. Embolization of the lower extremities. PLAN: 1. Continue heparinization. 2. Cardiac followup. 3. The patient is seen by ____ surgeon and will be transferred to ____ center for further procedures and testing. JOB# [id number]
== END 2018-10-25 03:05 | disposition short-term general hospital (02) | DRG 280 ==
LOC: ER 16:40 → ICU 20:00
PROVIDERS: ADMIT Internal Medicine; ATTEND Internal Medicine
DX: I21.4 Non-ST elevation (NSTEMI) myocardial infarction (principal); J96.91 Respiratory failure, unspecified with hypoxia; I74.01 Saddle embolus of abdominal aorta; E87.1 Hypo-osmolality and hyponatremia; I42.9 Cardiomyopathy, unspecified; M48.56XA Collapsed vertebra, not elsewhere classified, lumbar region, initial encounter for fracture; E87.2 Acidosis; N17.9 Acute kidney failure, unspecified; I74.3 Embolism and thrombosis of arteries of the lower extremities; I48.91 Unspecified atrial fibrillation; I27.20 Pulmonary hypertension, unspecified; J44.9 Chronic obstructive pulmonary disease, unspecified; F17.210 Nicotine dependence, cigarettes, uncomplicated; I50.9 Heart failure, unspecified; I11.0 Hypertensive heart disease with heart failure; E11.51 Type 2 diabetes mellitus with diabetic peripheral angiopathy without gangrene; M85.80 Other specified disorders of bone density and structure, unspecified site; Z89.422 Acquired absence of other left toe(s)
CPT/HCPCS: 36415-UA; 36600-90; 70450-TC; 71045-TC; 72131-TC; 76700-TC; 80053-TC; 80061-TC; 81001-TC; 82140-TC; 82803-TC; 82948-90; 83036-90; 84443-TC; 84484-TC; 85007-TC; 85025-TC; 85610-TC; 85730-TC; 87086-90; 90779; 93005; 93925-TC; 93970-TC-50; 94640; 94760; 96375; 96379; J0696; J1644; J1885; J1940; J1956; J2920; J2930; J7030; Q9967; Z7610